=== PATIENT | female | born 1960 | race Caucasian/White ===

== ENCOUNTER → 2023-02-01 09:53 | Outpatient (BNVA) | payer SELFPAY | PROVIDERS: Visit Provider Nurse Practitioner Family | DX: R05.9 Cough, unspecified (principal); W57.XXXA Bitten or stung by nonvenomous insect and other nonvenomous arthropods, initial encounter; R53.83 Other fatigue; M25.50 Pain in unspecified joint; M79.10 Myalgia, unspecified site; Z11.52 Encounter for screening for COVID-19 | CPT/HCPCS: 80053; 85651; 86140; 86618; 86666; 86757; 87426 ==